=== PATIENT | male | born 1960 | race African-American/Black ===

== ENCOUNTER 2023-01-01 14:53 | Emergency (ER) | payer MEDICARE, OTHER ==
[~2023-01-01] VITALS: Ht 175.3 cm; Wt 73.0 kg
[~2023-01-01 14:53] MED LIST: IRON; OMEP20CA4 PO; PRILOSEC PO; ZANTAC
[2023-01-01 15:04] VITALS: TEMP 98.7; O2SAT 98
[2023-01-01 17:53] LABS: BASOPHILS % 0.4 % (0.0-2.0); EOSINOPHILS % 2.6 % (0.0-5.0); HEMATOCRIT. 36.3 % (42.0-52.0); HEMOGLOBIN. 12.3 g/dL (14.0-18.0); MEAN CORPUSCULAR HEMOGLOBIN 32.5 pg (28.0-32.0); MEAN CORPUSCULAR HGB CONC 33.9 g/dL (31.0-37.0); MEAN CORPUSCULAR VOLUME 95.9 fL (80.0-94.0); MEAN PLATELET VOLUME 6.5 fl (7.4-10.4); MONOCYTES % 8.8 % (2.0-8.0); NEUTROPHILS % 79.2 % (40.0-76.0); PLATELET 387 x1000/uL (130-400); RED BLOOD CELL COUNT 3.78 mill/uL (4.7-6.1); RED CELL DISTRIBUTION WIDTH 15.6 % (11.6-14.6); WHITE BLOOD COUNT 13.8 x1000/uL (4.5-11.0)
[2023-01-01 18:01] LABS: CHLORIDE 105 mEq/L (98-107); INDEX HEMOLYSI 1 (1-3); INDEX ICTERIC 1 (1-4); INDEX LIPEMIC 1 (1-3); POTASSIUM 3.7 mEq/L (3.5-5.1); SODIUM 135 mEq/L (136-145)
[2023-01-01 18:09] LABS: ALANINE AMINOTRANSFERASE 21 IU/L (13-61); ALBUMIN 3.2 g/dL (3.4-5.0); ASPARTATE AMINOTRANSFERASE 16 IU/L (15-37); BILIRUBIN TOTAL 0.6 mg/dL (0.1-1.0); CALCIUM 8.9 mg/dL (8.5-10.1); CARBON DIOXIDE 25 mEq/L (21-32); CREATININE 0.8 mg/dL (0.6-1.3); GLUCOSE 96 mg/dL (70-105); PROTEIN TOTAL 7.9 g/dL (6.0-8.3); UREA NITROGEN BLOOD 12 mg/dL (7-21)
[2023-01-01] MEDS ORDERED: PIPERACILLIN/TAZOBACTAM 3.375GM/50ML PREMIX IV ONE (18:15)
[2023-01-01 20:01] VITALS: BP 137/72; PULSE 89; RESP 18
[2023-01-01] MEDS ORDERED: IBUP-2029 MT (20:12)
[2023-01-01] MEDS ORDERED: T3 PO (20:12)
[2023-01-01] MEDS ORDERED: AMOX1TAB16 MT (20:12)
== END 2023-01-01 20:22 | disposition home or self-care (01) ==
LOC: ER 14:53 → CANBEDREQ 21:45
DX: L03.114 Cellulitis of left upper limb (principal); T63.301A Toxic effect of unspecified spider venom, accidental (unintentional), initial encounter
CPT/HCPCS: 99284; 96365; 80053; 83605; 85025; 87040; 36415; 84145; 73130; J2543; 96374